=== PATIENT | male | born 1995 | race Caucasian/White ===

== ENCOUNTER 2020-12-12 14:54 | Emergency (ER) | payer SELFPAY ==
[~2020-12-12] VITALS: Ht 187 cm; Wt 101.0 kg
[2020-12-12] MEDS ORDERED: KETOROLAC 30 MG/ML VIAL IVP ONE (15:00)
--- NOTE | 2020-12-12 15:11 | ED Chest Pain ---
General Chief Complaint: Chest Pain Stated Complaint: CHEST PAIN Source: patient Exam Limitations: no limitations History of Present Illness Date Seen by Provider: Dec 12, 2020 Time Seen by Provider: 15:09 Initial Comments To ER with chest pain for 2 weeks sharp in nature he quit smoking 2 days ago Severity/Quality: moderate Location: central Radiation: no radiation Activities at Onset: none Prior CP/Workup: no prior chest pain ASA po [employer]: No NTG SL [employer]: No Allergies and Home Medications Allergies Coded Allergies: No Known Drug Allergies (Unverified , 12/12/20) Patient Home Medication List Home Medication List Reviewed: Yes Review of Systems Review of Systems Constitutional: see HPI EENTM: No Symptoms Reported Respiratory: No Symptoms Reported Cardiovascular: See HPI, Chest Pain Gastrointestinal: No Symptoms Reported Genitourinary: No Symptoms Reported Musculoskeletal: no symptoms reported Skin: no symptoms reported Psychiatric/Neurological: No Symptoms Reported Endocrine: No Symptoms Reported Past Yogzygv-Qaquqw-Cnxvdh Hx Patient Social History Alcohol Use: Denies Use Smoking Status: Current Everyday Smoker Type Used: Cigarettes Recent Hopitalizations: No Past Medical History Surgeries: No Respiratory: No Cardiac: No Neurological: No Genitourinary: No Gastrointestinal: No Musculoskeletal: No Endocrine: No HEENT: No Cancer: No Psychosocial: Yes Schizophrenia Integumentary: No Physical Exam Vital Signs Vital Signs - First Documented 12/12/20 14:56 Temp 36.7 Pulse 72 Resp 18 B/P (MAP) 159/83 (108) Pulse Ox 97 O2 Delivery Room Air Capillary Refill : Less Than 3 Seconds Height, Weight, BMI Height: '" Weight: lbs. oz. kg; BMI Method: General Appearance: No Apparent Distress, WD/WN, Anxious HEENT: PERRL/EOMI, TMs Normal Neck: Full Range of Motion, Normal Inspection Respiratory: Normal Breath Sounds, No Accessory Muscle Use, No Respiratory Distress Cardiovascular: Regular Rate, Rhythm, Normal Peripheral Pulses Gastrointestinal: Non Tender, Soft Extremity: Normal Capillary Refill, Normal Inspection Neurologic/Psychiatric: Alert, Oriented x3 Skin: Normal Color, Warm/Dry Other comments EKG reveals a sinus rhythm rate of [address] segment changes no ectopy normal intervals Progress/Results/Core Measures Results/Orders Lab Results Laboratory Tests Test 12/12/20 15:00 Range/Units White Blood Count 6.1 4.3-11.0 10^3/uL Red Blood Count 5.75 H 4.30-5.52 10^6/uL Hemoglobin 16.1 13.3-17.7 g/dL Hematocrit 48 40-54 % Mean Corpuscular Volume 83 80-99 fL Mean Corpuscular Hemoglobin 28 25-34 pg Mean Corpuscular Hemoglobin Concent 34 32-36 g/dL Red Cell Distribution Width 12.4 10.0-14.5 % Platelet Count 189 130-400 10^3/uL Mean Platelet Volume 10.1 9.0-12.2 fL Immature Granulocyte % (Auto) 1 % Neutrophils (%) (Auto) 49 42-75 % Lymphocytes (%) (Auto) 39 12-44 % Monocytes (%) (Auto) 10 0-12 % Eosinophils (%) (Auto) 1 0-10 % Basophils (%) (Auto) 0 0-10 % Neutrophils # (Auto) 3.0 1.8-7.8 10^3/uL Lymphocytes # (Auto) 2.4 1.0-4.0 10^3/uL Monocytes # (Auto) 0.6 0.0-1.0 10^3/uL Eosinophils # (Auto) 0.1 0.0-0.3 10^3/uL Basophils # (Auto) 0.0 0.0-0.1 10^3/uL Immature Granulocyte # (Auto) 0.0 0.0-0.1 10^3/uL D-Dimer < 0.27 0.00-0.49 UG/ML Sodium Level 142 135-145 MMOL/L Potassium Level 4.1 3.6-5.0 MMOL/L Chloride Level 104 98-107 MMOL/L Carbon Dioxide Level 26 21-32 MMOL/L Anion Gap 12 5-14 MMOL/L Blood Urea Nitrogen 10 7-18 MG/DL Creatinine 1.08 0.60-1.30 MG/DL Estimat Glomerular Filtration Rate > 60 BUN/Creatinine Ratio 9 Glucose Level 100 70-105 MG/DL Calcium Level 9.7 8.5-10.1 MG/DL Corrected Calcium 8.5-10.1 MG/DL Total Bilirubin 1.0 0.1-1.0 MG/DL Aspartate Amino Transf (AST/SGOT) 18 5-34 U/L Alanine Aminotransferase (ALT/SGPT) 20 0-55 U/L Alkaline Phosphatase 59 40-136 U/L Troponin I < 0.028 <0.028 NG/ML C-Reactive Protein High Sensitivity 0.10 0.00-0.50 MG/DL Total Protein 7.5 6.4-8.2 GM/DL Albumin 4.9 H 3.2-4.5 GM/DL My Orders Orders - MECCA ARRIAZA APRN Cbc With Automated Diff (12/12/20 15:00) Comprehensive Metabolic Panel (12/12/20 15:00) Hs C Reactive Protein (12/12/20 15:00) Fibrin Degradation Products (12/12/20 15:00) Ekg Tracing (12/12/20 15:00) Chest 1 View, Ap/Pa Only (12/12/20 15:00) Troponin I (12/12/20 15:00) Ed Iv/Invasive Line Start (12/12/20 15:00) Ketorolac Injection (Toradol Injection) (12/12/20 15:00) Lorazepam Injection (Ativan Injection) (12/12/20 15:15) Lorazepam Injection (Ativan Injection) (12/12/20 16:00) Medications Given in ED Current Medications Medications Dose Ordered Sig/Aleksandr Route Start Time Stop Time Status Last Admin Dose Admin Ketorolac Tromethamine 15 mg ONCE ONCE IVP 12/12/20 15:00 12/12/20 15:02 DC 12/12/20 15:09 15 MG Vital Signs/I&O 12/12/20 12/12/20 14:56 14:56 Temp 36.7 Pulse 72 Resp 18 B/P (MAP) 159/83 (108) Pulse Ox 97 O2 Delivery Room Air Departure Impression Primary Impression: Chest pain Disposition: 01 HOME, SELF-CARE Condition: Stable Departure-Patient Inst. Decision time for Depature: 16:09 Patient Instructions: Chest Pain, Adult ED Add. Discharge Instructions: 1. Return to ER for any concerns 2. All discharge instructions reviewed with patient and/or family. Voiced understanding. MECCA ARRIAZA APRN Dec 12, 2020 15:11
[2020-12-12] MEDS ORDERED: LORazepam INJ 2 MG/ML (ATIVAN) VIAL IVP PRN ×2 (15:15→16:00)
[2020-12-12 15:19] LABS: BASOPHILS % (AUTO) 0 % (0-10); EOSINOPHILS # (AUTO) 0.1 10^3/uL (0.0-0.3); EOSINOPHILS % (AUTO) 1 % (0-10); HEMATOCRIT 48 % (40-54); HEMOGLOBIN 16.1 g/dL (13.3-17.7); LYMPHOCYTES # (AUTO) 2.4 10^3/uL (1.0-4.0); LYMPHOCYTES % (AUTO) 39 % (12-44); MEAN CORPUSCULAR HEMOGLOBIN 28 pg (25-34); MEAN CORPUSCULAR HGB CONC 34 g/dL (32-36); MEAN CORPUSCULAR VOLUME 83 fL (80-99); MEAN PLATELET VOLUME 10.1 fL (9.0-12.2); MONOCYTES # (AUTO) 0.6 10^3/uL (0.0-1.0); MONOCYTES % (AUTO) 10 % (0-12); NEUTROPHILS % (AUTO) 49 % (42-75); PLATELET COUNT 189 10^3/uL (130-400); WHITE BLOOD COUNT 6.1 10^3/uL (4.3-11.0)
[2020-12-12 15:25] LABS: ALBUMIN 4.9 GM/DL (3.2-4.5); CHLORIDE 104 MMOL/L (98-107); POTASSIUM 4.1 MMOL/L (3.6-5.0); SODIUM 142 MMOL/L (135-145)
[2020-12-12 15:26] LABS: CALCIUM 9.7 MG/DL (8.5-10.1)
[2020-12-12 15:27] LABS: GLUCOSE 100 MG/DL (70-105)
[2020-12-12 15:28] LABS: TOTAL PROTEIN 7.5 GM/DL (6.4-8.2)
[2020-12-12 15:29] LABS: CARBON DIOXIDE 26 MMOL/L (21-32)
[2020-12-12 15:31] LABS: ALKALINE PHOSPHATASE 59 U/L (40-136); CREATININE SERUM 1.08 MG/DL (0.60-1.30); GFR ESTIMATED > 60
[2020-12-12 15:32] LABS: BUN/CREATININE RATIO 9
[2020-12-12 15:34] LABS: ALANINE AMINOTRANSFERASE 20 U/L (0-55)
--- NOTE | 2020-12-12 16:03 | Diagnostic Imaging Report ---
INDICATION: Chest pain. TIME OF EXAM: 3:58 p.m. COMPARISON: No prior study is available for comparison. FINDINGS: The heart size is normal. The pulmonary vascularity is unremarkable. The lungs are clear. No infiltrate, effusion or pneumothorax is detected. IMPRESSION: No acute cardiopulmonary process is detected. Dictated by: Dictated on workstation # [id number]
[2020-12-12 16:23] VITALS: BP 126/62
== END 2020-12-12 16:23 | disposition home or self-care (01) ==
LOC: ER 14:56
DX: R07.9 Chest pain, unspecified (principal); F17.210 Nicotine dependence, cigarettes, uncomplicated
CPT/HCPCS: 36415; 71045; 80053; 84484; 85025; 85379; 86141; 93005